=== PATIENT | female | born 1975 | race Caucasian/White ===

== ENCOUNTER 2017-01-06 10:14 | Emergency (ER) | payer OTHER ==
[~2017-01-06] VITALS: Ht 165.1 cm; Wt 174.0 kg
[~2017-01-06 10:14] MED LIST: CLONAZEPAM0.25 MG PO; FLEXERIL10 MG PO; LYRICA50 MG PO; TRAMADOL HCL50 MG PO; VICODIN ES 7.51 EAC1 PO; ZOLOFT PO; ZOLOFT100 MG PO
[2017-01-06 11:23] LABS: MCH 15.6 PG (29.0-34.0); MCHC 25.2 G/DL (30.0-36.0); MEAN PLAT.VOLUME 8.4 uM^3 (9.5-12.4); NRBC (%) 0.1 /100 WBC (0-0); PLATELET COUNT 665 K/uL (156-360); RBC DIS.WIDTH-CV 21.2 % (11.8-14.6); RBC DIS.WIDTH-SD 44.5 % (39-53); WHITE BLOOD COUNT 16.1 K/uL (4.1-10.2)
[2017-01-06 11:26] LABS: CHLORIDE 106 mEq/L (99-109); POTASSIUM 3.8 mEq/L (3.7-5.4); SODIUM 143 mEq/L (136-147)
[2017-01-06 11:28] LABS: GLUCOSE 90 mg/dL (70-99)
[2017-01-06 11:29] LABS: ANION GAP 10 MEQ/L (2-14)
[2017-01-06 11:32] LABS: GFR ESTIMATE (CALCULATED) > 59 mL/min/
[2017-01-06 11:33] LABS: UREA NITROGEN (BUN) 12 mg/dL (9-23)
[2017-01-06 13:02] LABS: ABS NEUTROPHIL COUNT 13.9; ANISOCYTOSIS 3+; BAND NEUTROPHILS 0.9 % (0-8.0); EOSINOPHIL ABS CT 0; HYPOCHROMASIA 3+; INSTRUMENT ABS NEUTROPHIL CT 13.1 K/uL; LYMPHOCYTES 11.3 % (15.0-45.0); MICROCYTOSIS 3+; NUCLEATED RBC'S 0.9; OVALOCYTES 1+; PLAT.SUFFICIENCY INCREASED; POIKILOCYTOSIS 2+; SEG.NEUTROPHILS 85.2 % (46.0-76.0); STOMATOCYTES 1+
[2017-01-06] MEDS ORDERED: TESSALON PERLE100 MG PO (14:46)
[2017-01-06] MEDS ORDERED: VENTOLIN HFA18 GM IH (14:46)
[2017-01-06 15:33] VITALS: BP 135/87
== END 2017-01-06 15:34 | disposition home or self-care (01) ==
LOC: EME 10:14
DX: J20.8 Acute bronchitis due to other specified organisms (principal); R03.0 Elevated blood-pressure reading, without diagnosis of hypertension; D64.9 Anemia, unspecified; D47.3 Essential (hemorrhagic) thrombocythemia; R00.0 Tachycardia, unspecified
CPT/HCPCS: 71020; 71275; 80048; 85007; 85025; 85027; 85379; 99281; 99284; J7030